=== PATIENT | male | born 1995 | race Caucasian/White ===

== ENCOUNTER 2017-10-04 10:48 | Emergency (ER) | payer OTHER ==
[2017-10-04] MEDS ORDERED: ACETAMINOPHEN 325 MG TABLET (FP) PO ONE (11:04)
[2017-10-04] MEDS ORDERED: IBUPROFEN 600 MG TABLET (FP) PO ONE ×2 (11:04→11:27)
--- NOTE | 2017-10-04 11:07 | PDOC ---
Attending Attestation - HPI HPI: 10/04/17 12:04 The patient is a 22 year old male with no significant past medical history presents to the emergency department via EMS s/p a fall. 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 The patient reports he was wearing a construction hat during the incident. As per the co-worker present at the ED and witnessed the incident, the patient was about to go on a break when he walked to the other side of the room, stepping on an unsupported plywood. The patient reports he went straight down landing on his right foot. The patient reports pain to the R. ankle, L. knee and L. elbow, rates the pain 7/10 in severity. The patient states he was able to ambulate s/p the fall, reports walking down the stairs from the 10th floor to the 1st floor. The patient reports he is unable to put a lot weight on the R. leg. Denies head injury or trauma. Denies headache, vertigo, dizziness or lightheadedness. Denies loss of conscious. Denies neck pain, back pain or abdominal pain. Denies chest pain, shortness of breath or orthopnea. Denies numbness, tingling, weakness or loss of sensation. Denies nausea or vomiting. Allergies: NKDA Social history: None reported Surgical history: None reported PCP: None reported - Medical Decision Making 10/04/17 12:04 Documentation prepared by Maddison Barrett, acting as medical service representative for Marisela Champagne MD. <Maddison Barrett - Last Filed: 10/04/17 12:08> - Resident Resident Name: Blaze Guaman - ED Attending Attestation I have performed the following: I have examined & evaluated the patient, The case was reviewed & discussed with the resident, I agree w/resident's findings & plan, Exceptions are as noted - Physicial Exam PE: GENERAL: Awake, alert, and fully oriented, in no acute distress HEAD: No signs of trauma EYES: PERRLA, EOMI, sclera anicteric, conjunctiva clear ENT: Auricles normal inspection, hearing grossly normal, nares patent, oropharynx clear without exudates. Moist mucosa NECK: Normal ROM, supple, no lymphadenopathy, JVD, or masses LUNGS: Breath sounds equal, clear to auscultation bilaterally. No wheezes, and no crackles HEART: Regular rate and rhythm, normal S1 and S2, no murmurs, rubs or gallops ABDOMEN: Soft, nontender, normoactive bowel sounds. No guarding, no rebound. No masses EXTREMITIES: +Tenderness to R medial malleolus. No deformity, no swelling. + Peripheral pulses. L knee with abrasions overlying the patella. No swelling, no crepitus, no ligamentous instability. Remainder of extremities with normal range of motion, no edema. No clubbing or cyanosis. No cords, erythema, or tenderness NEUROLOGICAL: Cranial nerves II through XII grossly intact. Normal speech, normal gait SKIN: Warm, Dry, normal turgor, no rashes. +Abrasions to the forearms B/L. SPINE: No midline tenderness, no step-offs. - Medical Decision Making 10/04/17 11:44 Pt is s/p fall approx 10 feet onto the R foot, followed by a tumble, injuring his L knee and forearms. He has tenderness to R medial malleolus. Will image the foot, ankle, and lower leg on R. Will XR the L knee. No midline tenderness to the spine. No pelvic tenderness, instability. <Marisela Champagne - Last Filed: 10/04/17 13:23>
--- NOTE | 2017-10-04 11:11 | PDOC ---
History of Present Illness - General Chief Complaint: Injury Stated Complaint: 10FT FALL Time Seen by Provider: 10/04/17 10:57 History Source: Patient Exam Limitations: No Limitations - History of Present Illness Initial Comments: 10/04/17 11:05 Patient is a 22M with no significant medical history here today complaining of a fall. 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 Patient denies LOC, headache and neck pain. He complains of pain to his right ankle, left knee and right elbow. Patient states that he was able to walk after the incident. Denies chest pain, shortness of breath, and abdominal pain. Last tetanus was last year. Past History - Past Medical History Allergies/Adverse Reactions: Allergies Allergy/AdvReac Type Severity Reaction Status Date / Time No Known Allergies Allergy Verified 10/04/17 11:02 Review of Systems - Review of Systems Comments:: 10/04/17 11:07 GENERAL/CONSTITUTIONAL: No fever or chills. No weakness. HEAD, EYES, EARS, NOSE AND THROAT: No change in vision. No sore throat. CARDIOVASCULAR: No chest pain or shortness of breath RESPIRATORY: No cough, wheezing, or hemoptysis. GASTROINTESTINAL: No nausea, vomiting, diarrhea or constipation. GENITOURINARY: No dysuria, frequency, or change in urination. MUSCULOSKELETAL: Pain in right elbow, left knee and right ankle SKIN: No rash NEUROLOGIC: No headache, vertigo, loss of consciousness, or change in strength/ sensation. ENDOCRINE: No increased thirst. No abnormal weight change HEMATOLOGIC/LYMPHATIC: No anemia, easy bleeding, or history of blood clots. ALLERGIC/IMMUNOLOGIC: No hives or skin allergy. *Physical Exam - Physical Exam Comments: 10/04/17 11:07 GENERAL: Awake, alert, and fully oriented, in no acute distress HEAD: No signs of trauma, normocephalic, atraumatic EYES: PERRLA, EOMI, sclera anicteric, conjunctiva clear ENT: Auricles normal inspection, hearing grossly normal, nares patent, oropharynx clear without exudates. Moist mucosa NECK: Normal ROM, supple, no lymphadenopathy, JVD, or masses, no midline tenderness BACK: No signs of trauma, no midline tenderness LUNGS: No distress, speaks full sentences, clear to auscultation bilaterally HEART: Regular rate and rhythm, normal S1 and S2, no murmurs, rubs or gallops, peripheral pulses normal and equal bilaterally. ABDOMEN: Soft, nontender, normoactive bowel sounds. No guarding, no rebound. No masses. No signs of trauma L LEG: Tender L knee with shallow abrasions. Full range of motion. Neurovascularly intact distal to injury. R LEG: Tender in R foot, full range of motion, no deformity, neurovascularly intact distal to injury R ARM: Tender in R elbow, full range of motion, no deformity, shallow abrasions NEUROLOGICAL: Cranial nerves II through XII grossly intact. Normal speech, no focal sensorimotor deficits ED Treatment Course - RADIOLOGY Radiology Studies Ordered: Category Date Time Status ANKLE & FOOT-RIGHT* [RAD] Stat Radiology 10/04/17 11:04 Ordered ELBOW-RIGHT [RAD] Stat Radiology 10/04/17 11:04 Ordered KNEE 3 POS-LEFT [RAD] Stat Radiology 10/04/17 11:04 Ordered Medical Decision Making - Medical Decision Making 10/04/17 11:10 Patient is 22M here today s/p fall from 10 feet. Head cleared by [facility] rule. Neck cleared by [facility]. Nontender chest, abdomen, back. Normal work of breathing, normal vital signs, walking after incident. Will image painful extremities, do not think it's likely has fracture. Will clean and dress abrasions. Likely discharge. 10/04/17 12:19 X-rays negative. Will discharge with ortho follow up. *DC/Admit/Observation/Transfer Diagnosis at time of Disposition: Fall - Discharge Dispostion Disposition: HOME Condition at time of disposition: Good Decision to Admit order: No - Referrals Referrals: Familia Olvera MD [Staff Physician] - - Patient Instructions Printed Discharge Instructions: DI for Ankle Pain Additional Instructions: Please return if you have any new, worsening or concerning symptoms. Please see your primary care physician or orthopedic doctor for clearance to go back to work. - Post Discharge Activity
[2017-10-04] MEDS ORDERED: ACETAMINOPHEN 325 MG TABLET (FP) ONE (11:26)
[2017-10-04 12:01] VITALS: BP 129/65; PULSE 78; TEMP 98.5; BMI 26.6
[2017-10-04] MEDS ORDERED: BACITRACIN 0.9 GM PACKET TP ONE (12:02)
[2017-10-04] MEDS ORDERED: BACITRACIN 0.9 GM PACKET ONE (12:04)
== END 2017-10-04 12:31 | disposition home or self-care (01) ==
LOC: JER 10:48
DX: S80.212A Abrasion, left knee, initial encounter (principal); M25.521 Pain in right elbow; M25.571 Pain in right ankle and joints of right foot; W17.89XA Other fall from one level to another, initial encounter; Y93.H3 Activity, building and construction; Y92.61 Building [any] under construction as the place of occurrence of the external cause; Y99.0 Civilian activity done for income or pay
CPT/HCPCS: 73070-TC-RT-FY; 73562-TC-LT-FY; 73610-TC-RT-FY; 73630-TC-RT-FY; 99282-25